=== PATIENT | male | born 1945 | race Caucasian/White ===

== ENCOUNTER 2018-04-28 10:55 | Emergency (ER) | payer OTHER ==
[2018-04-28] MEDS: LORAZEPAM 0.5 MG TAB PO (11:57)
[2018-04-28] MEDS: KETOROLAC 15 MG INJ IM (11:58)
== END 2018-04-28 12:40 | disposition home or self-care (01) ==
LOC: FTE 10:55
DX: M62.838 Other muscle spasm (principal); I10 Essential (primary) hypertension
CPT/HCPCS: 96372; 99284-25